=== PATIENT | male | born 1980 | race Hispanic/Latino ===

== ENCOUNTER 2017-04-15 16:35 | Emergency (ER) | payer OTHER ==
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
== END 2017-04-15 18:18 | disposition home or self-care (01) ==
LOC: MADERS 16:35
DX: S00.83XA Contusion of other part of head, initial encounter (principal); W22.8XXA Striking against or struck by other objects, initial encounter; Y99.0 Civilian activity done for income or pay
CPT/HCPCS: 70450

== ENCOUNTER 2021-08-19 08:08 | Emergency (ER) | payer OTHER ==
[2021-08-19] MEDS ORDERED: Sulfameth/Trimethoprim DS 800-160mg TAB ONE (08:31)
== END 2021-08-19 08:35 | disposition home or self-care (01) ==
LOC: MADERS 08:08
DX: L02.415 Cutaneous abscess of right lower limb (principal); F17.210 Nicotine dependence, cigarettes, uncomplicated
CPT/HCPCS: 87070; 87205; 99283